=== PATIENT | male | born 1960 | race Caucasian/White ===

== ENCOUNTER 2019-03-20 08:30 | Inpatient (IN) | payer OTHER ==
[~2019-03-20] VITALS: Ht 172.7 cm; Wt 108.9 kg
[2019-03-20 08:37] VITALS: Ht 172.7 cm; Wt 108.9 kg
[2019-03-20 09:06] LABS: BASOPHIL % 0.4 % (0-2); PLATELET COUNT 278 x10^3mcL (130-400); RED CELL DISTRIBUTION WIDTH 13.7 % (11.5-14.5)
[2019-03-20 09:11] LABS: CALCIUM 9.5 mg/dL (8.5-10.1); CARBON DIOXIDE 29.4 mmol/L (21-32); CHLORIDE SERUM 98 mmol/L (98-107); CREATININE SERUM 0.9 mg/dL (0.7-1.3); GFR1 > 60 mL/min; GLUCOSE SERUM 267 mg/dL (74-106); POTASSIUM SERUM 4.4 mmol/L (3.5-5.1); SODIUM SERUM 137 mmol/L (136-145)
[2019-03-20 09:16] LABS: ALKALINE PHOSPHATASE 55 U/L (46-116); ALT/SGPT 53 U/L (16-63); AST/SGOT 29 U/L (15-37); TOTAL PROTEIN, SERUM 7.9 g/dL (6.4-8.2)
[2019-03-20] MEDS ORDERED: METFORMIN850 M1 PO (11:21)
[2019-03-20] MEDS ORDERED: VENTOLIN H0.09 MG/A1 IH (11:22)
[2019-03-20] MEDS ORDERED: LOSARTAN POTASS25 M1 PO (11:22)
[2019-03-20 12:29] LABS: CHOLESTEROL/HDL RATIO 5.1; MAGNESIUM 1.6 mg/dL (1.8-2.4)
[2019-03-20 12:35] LABS: FREE T4 1.29 ng/dL (0.76-1.46); FREE THYROXINE INDEX 2.8 ug/dL (1.4-4.5); T4(THYROXINE) 7.9 ug/dL (4.7-13.3)
[2019-03-20 12:40] LABS: T3 TOTAL 0.72 ng/mL
[2019-03-20 12:57] VITALS: BP 132/63
[2019-03-20 13:17] VITALS: BP 132/63
[2019-03-20 13:34] VITALS: BP 132/63
[2019-03-20 17:47] VITALS: BP 126/62
[2019-03-20 19:01] LABS: UA SPECIFIC GRAVITY 1.025 (1.005-1.035); microscopic required? YES; urine erythrocyte NEGATIVE (NEGATIVE)
[2019-03-20 19:17] LABS: AMPHETAMINE QUAL UR NONE DETECTED (See below)
[2019-03-20 20:43] VITALS: BP 129/68
[2019-03-21 05:49] VITALS: BP 134/72
[2019-03-21 06:12] LABS: PLATELET COUNT 274 x10^3mcL (130-400); RED CELL DISTRIBUTION WIDTH 13.4 % (11.5-14.5)
[2019-03-21 06:15] LABS: BASOPHIL % 0 % (0-2)
[2019-03-21 06:40] LABS: CALCIUM 9.4 mg/dL (8.5-10.1); CARBON DIOXIDE 30.6 mmol/L (21-32); CHLORIDE SERUM 97 mmol/L (98-107); CREATININE SERUM 0.9 mg/dL (0.7-1.3); GFR1 > 60 mL/min; GLUCOSE SERUM 328 mg/dL (74-106); MAGNESIUM 1.9 mg/dL (1.8-2.4); POTASSIUM SERUM 4.8 mmol/L (3.5-5.1); SODIUM SERUM 137 mmol/L (136-145)
[2019-03-21 09:45] VITALS: BP 120/56
[2019-03-21 13:00] VITALS: BP 115/50
[2019-03-21 18:09] VITALS: BP 112/52
[2019-03-21 21:33] VITALS: BP 110/55
[2019-03-22 05:32] VITALS: BP 121/66
[2019-03-22 06:13] LABS: PLATELET COUNT 325 x10^3mcL (130-400); RED CELL DISTRIBUTION WIDTH 13.1 % (11.5-14.5)
[2019-03-22 06:20] LABS: CALCIUM 9.6 mg/dL (8.5-10.1); CARBON DIOXIDE 25.7 mmol/L (21-32); CHLORIDE SERUM 100 mmol/L (98-107); CREATININE SERUM 0.9 mg/dL (0.7-1.3); GFR1 > 60 mL/min; GLUCOSE SERUM 342 mg/dL (74-106); MAGNESIUM 2.2 mg/dL (1.8-2.4); PHOSPHOROUS 3.3 mg/dL (2.5-4.9); POTASSIUM SERUM 4.6 mmol/L (3.5-5.1); SODIUM SERUM 137 mmol/L (136-145)
[2019-03-22 07:07] LABS: BASOPHIL % 0 % (0-2)
[2019-03-22 09:11] VITALS: BP 109/58
[2019-03-22 09:18] VITALS: BP 142/78
[2019-03-22 12:27] VITALS: BP 110/45
[2019-03-22 16:47] VITALS: BP 114/58
[2019-03-22 21:00] VITALS: BP 124/62
[2019-03-23 05:33] VITALS: BP 125/69
[2019-03-23 05:40] LABS: BASOPHIL % 0.1 % (0-2); PLATELET COUNT 329 x10^3mcL (130-400); RED CELL DISTRIBUTION WIDTH 13.4 % (11.5-14.5)
[2019-03-23 05:41] LABS: CALCIUM 9.5 mg/dL (8.5-10.1); CARBON DIOXIDE 29.8 mmol/L (21-32); CHLORIDE SERUM 100 mmol/L (98-107); CREATININE SERUM 0.9 mg/dL (0.7-1.3); GFR1 > 60 mL/min; GLUCOSE SERUM 357 mg/dL (74-106); POTASSIUM SERUM 5.2 mmol/L (3.5-5.1); SODIUM SERUM 136 mmol/L (136-145)
[2019-03-23 09:21] VITALS: BP 116/56
[2019-03-23 10:37] VITALS: BP 116/56
[2019-03-23 13:25] VITALS: BP 136/80
[2019-03-23 16:34] VITALS: BP 123/63
[2019-03-23 20:38] VITALS: BP 142/75
[2019-03-24 05:53] VITALS: BP 137/77
[2019-03-24 07:04] LABS: CHLORIDE SERUM 99 mmol/L (98-107); CREATININE SERUM 0.9 mg/dL (0.7-1.3); GFR1 > 60 mL/min; GLUCOSE SERUM 333 mg/dL (74-106); POTASSIUM SERUM 4.4 mmol/L (3.5-5.1); SODIUM SERUM 136 mmol/L (136-145)
[2019-03-24 07:05] LABS: BASOPHIL % 0.3 % (0-2); PLATELET COUNT 358 x10^3mcL (130-400); RED CELL DISTRIBUTION WIDTH 13.5 % (11.5-14.5)
[2019-03-24 08:49] VITALS: BP 147/87
[2019-03-24] MEDS ORDERED: LEVAQUIN750 MG PO (10:30)
[2019-03-24] MEDS ORDERED: PRE20 PO (10:31)
[2019-03-24] MEDS ORDERED: PROAIR HFA8.5 GM IH (10:31)
[2019-03-24 14:29] VITALS: BP 132/67
[2019-03-24 16:04] VITALS: BP 126/72
[2019-03-24 20:55] VITALS: BP 119/54
[2019-03-25 06:07] VITALS: BP 105/61
[2019-03-25] MEDS ORDERED: AEROECLIPSE II1 EACH MC (08:28)
[2019-03-25] MEDS ORDERED: ALBUTEROL SULFAT3 ML NEB (08:28)
[2019-03-25 09:46] VITALS: BP 124/65
[2019-03-25 10:21] VITALS: BP 124/65
[2019-03-25 12:39] VITALS: BP 115/70
[2019-03-25 16:34] VITALS: BP 117/66
== END 2019-03-25 18:30 | disposition home or self-care (01) | DRG 720 ==
LOC: ED 08:30 → DU 11:30
PROVIDERS: ADMIT Internal Medicine
DX: A41.9 Sepsis, unspecified organism (principal); J96.01 Acute respiratory failure with hypoxia; J69.0 Pneumonitis due to inhalation of food and vomit; N17.0 Acute kidney failure with tubular necrosis; E11.65 Type 2 diabetes mellitus with hyperglycemia; J44.1 Chronic obstructive pulmonary disease with (acute) exacerbation; E44.0 Moderate protein-calorie malnutrition; K42.9 Umbilical hernia without obstruction or gangrene; F11.10 Opioid abuse, uncomplicated; I10 Essential (primary) hypertension; E66.2 Morbid (severe) obesity with alveolar hypoventilation; E78.00 Pure hypercholesterolemia, unspecified; F17.210 Nicotine dependence, cigarettes, uncomplicated; Z68.36 Body mass index [BMI] 36.0-36.9, adult; Z79.84 Long term (current) use of oral hypoglycemic drugs; Z71.6 Tobacco abuse counseling; Z83.3 Family history of diabetes mellitus; Z99.81 Dependence on supplemental oxygen; Z79.899 Other long term (current) drug therapy
CPT/HCPCS: 36600; 82962; 83880; 84439; 94150; 99406; J1644; J1815; J1956; J2060; J2920; J2930; J7040; J7512; J7613; J7620; J7644; Q0092